=== PATIENT | male | born 1990 | race Caucasian/White ===

== ENCOUNTER 2022-12-23 04:23 | Emergency (ER) | payer OTHER ==
[2022-12-23 04:31] VITALS: BP 121/60; PULSE 100; RESP 18; TEMP 98.1; BMI 29.4
[2022-12-23] MEDS ORDERED: DOXYCYCLINE HYCLATE 100 MG CAPSULE PO ONE ×2 (05:49→05:57)
[2022-12-23] MEDS ORDERED: LIDOCAINE HCL 1%, 10 MG/ML (10ML VIAL) MDV ONE (05:50)
[2022-12-23] MEDS ORDERED: cefTRIAXone SODIUM 1 GM VIAL ONE (05:50)
[2022-12-23 08:15] LABS: URINE APPEARANCE CLEAR; URINE BILIRUBIN NEGATIVE (NEGATIVE); URINE COLOR YELLOW; URINE GLUCOSE (UA) NEGATIVE (NEGATIVE); URINE KETONE NEGATIVE (NEGATIVE); URINE LEUK ESTERASE NEGATIVE (NEGATIVE); URINE NITRITE NEGATIVE (NEGATIVE); URINE PROTEIN NEGATIVE (NEGATIVE); URINE UROBILINOGEN 0.2 mg/dL (0.2-1.0)
[2022-12-23 11:16] LABS: HIV INTERPRETATION NEGATIVE (NEGATIVE)
== END 2022-12-23 06:54 | disposition left against medical advice (07) ==
LOC: JER 04:23
DX: N48.89 Other specified disorders of penis (principal); Z20.2 Contact with and (suspected) exposure to infections with a predominantly sexual mode of transmission
CPT/HCPCS: 36415; 81003; 86704; 86709; 86780; 87340; 87389; 87491; 87517; 87591; 87661; 87902; 99284-25